=== PATIENT | male | born 1945 | race Hispanic/Latino ===

== ENCOUNTER 2017-02-14 11:15 | Day surgery (SDC) | payer MEDICARE, OTHER ==
[2017-02-14] MEDS ORDERED: MYDRIACYL ONE (11:51)
[2017-02-14] MEDS ORDERED: IOPIDINE ONE (11:51)
[2017-02-14] MEDS ORDERED: NEOFRIN ONE (11:52)
[2017-02-14] MEDS ORDERED: NEOFRIN OD ONE (12:05)
[2017-02-14] MEDS ORDERED: IOPIDINE OD ONE (12:05)
[2017-02-14] MEDS ORDERED: MYDRIACYL OD ONE (12:05)
[2017-02-14 13:13] VITALS: BP 120/70
== END 2017-02-14 11:16 | disposition home or self-care (01) ==
LOC: OR 11:15
PROVIDERS: ATTEND Specialist
DX: H26.491 Other secondary cataract, right eye (principal)